=== PATIENT | female | born 1980 | race Two or more races ===

== ENCOUNTER 2017-12-25 17:47 | Emergency (ER) | payer OTHER ==
[~2017-12-25] VITALS: Ht 165.1 cm; Wt 59.0 kg
--- NOTE | 2017-12-25 17:55 | NUR ---
CAME TO ER W/ FAMILY C/O NECK PAIN AND LT SHOULDER PAIN X YESTERDAY, DENIES INJURY. ALSO COMPLAINING OF NAUSEA. PT IS A/OX4, NAD VSS RR EVEN AND UNLABORED. PENDING ER MD EVALUATION
[2017-12-25] MEDS ORDERED: IBUPROFEN 400 MG TABLET PO ONE (18:30)
--- NOTE | 2017-12-25 18:30 | NUR ---
PT MEDICATED ORDERED.
[2017-12-25] MEDS ORDERED: IBUPROFEN 400 MG TABLET ONE (18:36)
--- NOTE | 2017-12-25 21:46 | NUR ---
Patient discharged to home in stable condition. Written and verbal after care instructions given. Patient verbalizes understanding of instruction. Patient is ambulatory with steady gait, accompanied by family. Nad noted. vss. No further complaits.
[2017-12-25 21:47] VITALS: BP 118/74
== END 2017-12-25 21:47 | disposition home or self-care (01) ==
LOC: ER 17:49
DX: S13.4XXA Sprain of ligaments of cervical spine, initial encounter (principal); X58.XXXA Exposure to other specified factors, initial encounter; Y93.89 Activity, other specified; Y92.89 Other specified places as the place of occurrence of the external cause; Y99.8 Other external cause status
CPT/HCPCS: 72040; 72125; 99284; A4606; Z7610

== ENCOUNTER 2019-01-29 14:27 | Emergency (ER) | payer BC, OTHER ==
[~2019-01-29] VITALS: Ht 165.1 cm; Wt 58.5 kg
[2019-01-29 14:32] VITALS: BP 124/82
--- NOTE | 2019-01-29 14:56 | NUR ---
FIBER GLASS SPLINT DONE BY TAX ACCOUNTANT.
== END 2019-01-29 15:34 | disposition home or self-care (01) ==
LOC: ER 14:31
DX: M65.351 Trigger finger, right little finger (principal); M65.341 Trigger finger, right ring finger